=== PATIENT | male | born 1940 | race Caucasian/White ===

== ENCOUNTER → 2017-01-12 | Outpatient (CLI) | payer OTHER | LOC: FCPNEURO 23:59 | PROVIDERS: ATTEND Psychiatry & Neurology Sleep Medicine | DX: G47.31 Primary central sleep apnea (principal); G47.61 Periodic limb movement disorder ==

== ENCOUNTER 2017-01-27 10:07 | Day surgery (SDC) | payer OTHER ==
[~2017-01-27 10:07] MED LIST: NS 1,000 ML IV ONE
[2017-01-27] MEDS ORDERED: BENZOCAINE UNIT DOSE SPRAY HURRICAINE MM ONE (10:12)
[2017-01-27] MEDS ORDERED: ATROPINE SULFATE 1 MG/10 ML SYR IVP ONE (10:12)
--- NOTE | 2017-01-27 10:39 | CPEKG ---
Heart Rate: 79 RR Interval: 759 QRSD Interval: 140 QT Interval: 444 QTC Interval: 510 P [place]: 0 QRS [place]: -131 T Wave [place]: 67 EKG Severity - ABNORMAL ECG - EKG Impression: VENTRICULAR-PACED COMPLEXES EKG Impression: RIGHT BUNDLE BRANCH BLOCK Electronically Signed By: Zara Hawkins 27-Jan-2017 10:44:36
[2017-01-27 11:00] LABS: INR 2.71 (0.83-1.16); PROTIME(PATIENT) 28.7 SEC (12.0-15.0)
[2017-01-27 11:01] LABS: APTT 38.3 SEC (23.0-38.0)
[2017-01-27 11:12] LABS: ANION GAP 11 mEq/L (8-16); CALCIUM 9.2 mg/dL (8.5-10.4); CARBON DIOXIDE 27 mEq/l (22-31); CHLORIDE 102 mEq/L (97-110); DIGOXIN 1.1 ng/mL (0.8-2.0); GLOMERULAR FILTRATION RATE > 60; GLUCOSE 109 mg/dL (70-100); MAGNESIUM 1.9 mg/dL (1.6-2.3); POTASSIUM 4.2 mEq/L (3.5-5.2); SODIUM 140 mEq/L (134-144)
--- NOTE | 2017-01-27 11:22 | PDANEPAE ---
ANE History of Present Illness 76 year old male w/ PMHx of severe AI (mechanical AVR in 1989), cardiomyopathy ( LVEF approx. 25%; has BIV AICD); A. Fib, DM, previous head and neck cancer treated with resection and XRT. ANE Past Medical History - Cardiovascular History Hx Hypertension: No Hx Arrhythmias: Yes Hx Chest Pain: No Hx Coronary Artery / Peripheral Vascular Disease: Yes Hx CHF / Valvular Disease: Yes Hx Palpitations: No Cardiovascular History Comment: AVR, Cardiomyopathy (EF=25%), AICD, A. Fib - Pulmonary History Hx COPD: No Hx Asthma/Reactive Airway Disease: No Hx Recent Upper Respiratory Infection: No Hx Oxygen in Use at Home: Yes Hx Sleep Apnea: Yes - Neurologic History Hx Cerebrovascular Accident: Yes Neurologic History Comment: Old CVA and documented cognitive decline - Endocrine History Hx Diabetes: Yes Hypothyroid: Yes Obesity: no - Renal History Hx Renal Disorders: No - Liver History Hx Hepatic Disorders: No - Cancer History Hx Cancer: Yes Cancer History Comment: HEENT cancer s/p resection and XRT - Congenital Disorder History Hx Congenital Disorders: No ANE Review of Systems Review of systems is: negative Review of Systems: - Exercise capacity Exercise capacity: <4 METS ANE Patient History - Allergies Allergies/Adverse Reactions: No Known Allergies Allergy (Unverified 02/25/09 06:58) - Home Medications Home medications: home medication list seen and reviewed - NPO status NPO Status: no food or drink >8 hours - Anes Hx Anes Hx: no prior problems - Smoking Hx Marijuana use: No - Alcohol Use Alcohol Use: Rarely - Family Anes Hx Family Anes Hx: neg - N/A ANE Labs/Vital Signs - Labs Result Diagrams: 01/27/17 10:40 - Vital Signs Vital Signs: reviewed preoperatively; see RN documention for details ANE Physical Exam - Airway Neck exam: FROM Mallampati Score: Class 2 Mouth exam: normal dental/mouth exam - Pulmonary Pulmonary: no respiratory distress - Cardiovascular Cardiovascular: regular rate and rhythym - ASA Status ASA Status: IV ANE Anesthesia Plan Anesthesia Plan: MAC Total IV Anesthesia: Yes
[2017-01-27] MEDS ORDERED: PROPOFOL/EMULSION 500 MG/50 ML BOTTLE IV ONE (11:26)
[2017-01-27] MEDS ORDERED: PHENYLEPHRINE HCL 100 MCG/ML SYR ONE (11:32)
[2017-01-27] MEDS ORDERED: EPINEPHrine 1 MG/10 ML SYR IVP ONE (11:32)
--- NOTE | 2017-01-27 11:59 | SOAPPROG ---
SOAP Progress Note Assessment/Plan: Assessment: EVELIA performed carefully with Anesthesia service assistance. See full dictated procedure report. Findings: 1)Severely reduced LVEF 23% with focal wall motion abnormalities. 2)Mild to moderately reduced RVEF. 3)AICD wires noted in right heart chambers. 4)No distinct clot seen in any four cardiac chambers or LA appendage however echogenic smoke in JANET and PW doppler 5-10 cm/sec in JANET. 5)No PFO or ASD by color Doppler or IV bubble study. 6)Mechanical AVR with peak and mean gradients of 7 and 4 mmHg and no AI 7)Moderate MR noted. 8)Mild to moderate TR noted. 9)Moderately enlarged TAA 4.2cm. PLAN: 1)increase Coreg to 6.25mg PO BID 2)rest of meds without changes. 3)f/u Cards-Dr. Tristin Uribe in two weeks. 4)No cardiac surgery of redo AVR or MV or TV repairs needed currently. 01/27/17 11:56 Objective: Laboratory Results 01/27/17 10:40 PT 28.7 SEC (12.0-15.0) H 01/27/17 10:40 INR 2.71 (0.83-1.16) H 01/27/17 10:40 ICD10 Worksheet Patient Problems: Problems Problem Status Onset Systolic CHF with reduced left ventricular function, NYHA class 3 Acute - ICD10 Problem Qualifiers (1) Systolic CHF with reduced left ventricular function, NYHA class 3
--- NOTE | 2017-01-27 15:07 | POSTANESTH ---
Post Anesthetic Evaluation Cardiovascular Status: Normal, Stable, Similar to Pre-Op Cond Respiratory Status: Normal, Stable, Similar to Pre-op Cond. Level of Consciousness/Mental Status: Can Participate in Eval, Alert and Oriented Pain Control: Adequate, Prn Tx Ordered Nausea/Vomiting Control: Adequate, Prn Tx Ordered Complications Possibly Related to Anesthesia: None Noted
--- NOTE | 2017-01-27 17:04 | ECHO ---
[email or web address] [id number] Main: [phone] Fax: Transesophageal Echocardiography Name: MODESTA RUEDA MR#: [id number] Study Date: 01/27/2017 Study Time: 11:32 AM Date of : 1940 Age: 76 year(s) Height: ( ) Weight: ( ) BSA: Gender: Male Examination: EVELIA Indication: CHF Image Quality: Contrast: Requested by: Charles Martinez Heart Rate: Rhythm: Pacemaker rhythm BP: / Procedure Staff Creative Services Designer: Jean Maldonado Reading Physician: Charles Martinez Requesting Provider: EVELIA Exam Details Measurements: Chambers Valvular Assessment AV/MV Valvular Assessment TV/PV Normal Normal Normal Name Value Range Name Value Range Name Value Range LVOTd 2.8 cm 2.8 cm mm AV Vmax: 1.29 m/s (1 m/s-1.7 TR Vmax: 2.88 mm/s ( - ) EF Range: 20-25 % m/s) TR PGmax: 33 mmHg ( - ) AV maxP mmHg ( - ) syst. PAP: 43 mmHg ( - ) AV meanP mmHg ( - ) LVOT Vmax: 0.60 m/s (0.7 m/s-1.1 m/s) NAOMI (Vmax): 2.9 cm2 ( - ) NAOMI (VTI): 2.5 cm ( - ) Additional Measurements: Valvular Assessment TV/PV Name Value CVP (est.): 10 mmHg Findings: The ejection fraction is estimated to be 20-25 %. Right Ventricle: Moderately reduced RV function. There is no pacemaker lead noted in the right ventricle. Patient: MODESTA RUEDA Study Date: 01/27/2017 Page 1 of 2 11:32 AM Left Atrium: An agitated saline study was performed and was negative for intracardiac shunting. Spontaneous contrast in the left atrium. Left Atrial Appendage: No thrombus in left appendage. Spontaneous contrast is present in the left atrial appendage. Mitral Valve: Moderate mitral valve regurgitation is present. Aortic Valve: The aortic valve is a mechanical prosthesis.. No prosthesis stenosis. No prosthesis regurgitation. The AV Vmax is 1.2 m/s with a Av mean PG of 4 mmHg. Tricuspid Valve: Mild tricuspid regurgitation is present. Aorta: Mild aortic root dilatation. Pericardium: No pericardial effusion. l1n (No Signature Object) Patient: MODESTA RUEDA Study Date: 01/27/2017 Page 2 of 2 11:32 AM [id number]
== END 2017-01-27 14:00 | disposition home or self-care (01) ==
LOC: FCATH 10:07
PROVIDERS: ATTEND Internal Medicine Cardiovascular Disease
PROC: B245ZZ4 Ultrasonography of Left Heart, Transesophageal (ICD-10-PCS; principal; 2017-01-27)
DX: I35.1 Nonrheumatic aortic (valve) insufficiency (principal); I50.23 Acute on chronic systolic (congestive) heart failure; I34.0 Nonrheumatic mitral (valve) insufficiency; I36.1 Nonrheumatic tricuspid (valve) insufficiency; R94.31 Abnormal electrocardiogram [ECG] [EKG]; I48.91 Unspecified atrial fibrillation; R06.02 Shortness of breath; I42.9 Cardiomyopathy, unspecified; E11.9 Type 2 diabetes mellitus without complications; G47.30 Sleep apnea, unspecified; I69.319 Unspecified symptoms and signs involving cognitive functions following cerebral infarction; E03.9 Hypothyroidism, unspecified; Z79.01 Long term (current) use of anticoagulants; Z87.891 Personal history of nicotine dependence; Z95.2 Presence of prosthetic heart valve; Z95.810 Presence of automatic (implantable) cardiac defibrillator
CPT/HCPCS: J2370; J2704

== ENCOUNTER → 2017-07-21 | Outpatient (CLI) | payer OTHER | LOC: BHLMT 10:45 | PROVIDERS: ATTEND Internal Medicine Interventional Cardiology | DX: I42.9 Cardiomyopathy, unspecified (principal); Z95.2 Presence of prosthetic heart valve | CPT/HCPCS: 93306-PO ==

== ENCOUNTER 2018-08-07 22:51 | Observation (INO) | payer OTHER | END 2018-08-09 16:22 | disposition home or self-care (01) | LOC: F2W 08-08 06:48 ==